=== PATIENT | male | born 1950 | race Caucasian/White ===

== ENCOUNTER 2017-05-18 15:26 | Emergency (ER) | payer SELFPAY ==
[2017-05-18] MEDS: HYDROCODONE/APAP (5/325) TAB PO (18:16)
== END 2017-05-18 20:51 | disposition home or self-care (01) ==
LOC: FTE 15:26
DX: S52.601A Unspecified fracture of lower end of right ulna, initial encounter for closed fracture (principal); R07.9 Chest pain, unspecified; V49.40XA Driver injured in collision with unspecified motor vehicles in traffic accident, initial encounter
CPT/HCPCS: 29125; 71045; 72040; 73090-RT; 73110-RT; 73130-RT; 99284-25